=== PATIENT | female | born 2000 | race Caucasian/White ===

== ENCOUNTER → 2022-02-04 | Outpatient (CLI) | payer BC ==
[2022-02-04 18:17] LABS: FREE T4 1.2 NG/DL (0.76-1.46); THYROID STIMULATING HORMONE 1.07 uIU/ML (0.358-3.740)
== END ==
LOC: M WUC 14:30
PROVIDERS: ATTEND Student in an Organized Health Care Education/Training Program
DX: R22.1 Localized swelling, mass and lump, neck (principal)

== ENCOUNTER → 2022-05-02 | Outpatient (CLI) | payer BC ==
[2022-05-02 16:47] LABS: HEMOGLOBIN 13.4 g/dl (12.0-15.5); MEAN CORPUSCULAR HEMOGLOBIN 30.4 pg (27.0-33.0); MEAN CORPUSCULAR HGB CONC 32.7 g/dl (32.0-36.5); PLATELET COUNT, AUTOMATED 394 10^3/uL (150-450); RED BLOOD COUNT 4.41 10^6/uL (4.00-5.40); WHITE BLOOD COUNT 6.2 10^3/uL (4.0-10.0)
[2022-05-02 17:24] LABS: THYROID STIMULATING HORMONE 0.953 uIU/ML (0.55-4.78)
[2022-05-02 17:25] LABS: TOTAL IRON BINDING CAPACITY 421 UG/DL (250-425)
[2022-05-02 17:28] LABS: ALKALINE PHOSPHATASE 46 U/L (46-116); ALT/SGPT < 9 U/L (7.0-40); AST/SGOT 12 U/L (<34); BILIRUBIN,TOTAL 0.4 MG/DL (0.3-1.2); BLOOD UREA NITROGEN 9 MG/DL (9-23); CALCIUM LEVEL 9.3 MG/DL (8.5-10.1); CARBON DIOXIDE LEVEL 26 MMOL/L (20-31); CHLORIDE LEVEL 107 MMOL/L (98-107); CREATININE FOR GFR 0.76 MG/DL (0.55-1.30); GLOMERULAR FILTRATION RATE > 60.0 (>60); GLUCOSE, FASTING 76 MG/DL (60-100); IRON (FE) 100 UG/DL (50-170); PERCENT SATURATION 23.8 % (13.2-45.0); POTASSIUM SERUM 4.2 MMOL/L (3.5-5.1); SODIUM LEVEL 140 MMOL/L (136-145); TOTAL PROTEIN 6.7 G/DL (5.7-8.2)
== END ==
LOC: M WUC 11:40
PROVIDERS: ATTEND Student in an Organized Health Care Education/Training Program
DX: R53.83 Other fatigue (principal)

== ENCOUNTER 2024-06-02 15:34 | Emergency (ER) | payer BC, OTHER ==
[~2024-06-02] VITALS: Ht 170.2 cm; Wt 59.7 kg
[~2024-06-02 15:34] MED LIST: BUPR75TA5; BUSP10TA79; CYAN1000VL; FERR325T3 PO; [UNRECOGNIZED DRUG - CODE]
[2024-06-02] MEDS: ACETAMINOPHEN 325 MG TAB PO ONE (17:17)
[2024-06-02] MEDS: ONDANSETRON 4MG ORAL DISINTEGRATING TAB PO ONE (17:17)
[2024-06-02] MEDS ORDERED: ONDA-282 PO (17:35)
[2024-06-02 17:51] VITALS: BP 115/68; TEMP 98.2; O2SAT 100
== END 2024-06-02 17:55 | disposition home or self-care (01) ==
LOC: M ED 15:34
DX: S00.93XA Contusion of unspecified part of head, initial encounter (principal); S16.1XXA Strain of muscle, fascia and tendon at neck level, initial encounter; V49.40XA Driver injured in collision with unspecified motor vehicles in traffic accident, initial encounter; Y92.9 Unspecified place or not applicable; Y93.9 Activity, unspecified; Y99.9 Unspecified external cause status; Z79.3 Long term (current) use of hormonal contraceptives; Z79.899 Other long term (current) drug therapy